=== PATIENT | female | born 1975 | race African-American/Black ===

== ENCOUNTER 2017-06-11 15:24 | Emergency (ER) | payer BC, OTHER ==
[~2017-06-11] VITALS: Ht 177.8 cm; Wt 113.4 kg
[~2017-06-11 15:24] MED LIST: BACTRIM DS TAB1 EACH PO; BCP; IBUPROFEN 600600 M1 PO; NECON1 EAC1 PO; NOHOMEMEDICATIONS; NORCO 5-325 TA1 EACH PO
[2017-06-11] MEDS ORDERED: CYCLOBENZAPRINE5 MG PO (16:55)
[2017-06-11] MEDS ORDERED: NORCO 10-325 T1 EACH PO (16:55)
[2017-06-11 17:29] VITALS: BP 189/84
== END 2017-06-11 17:32 | disposition home or self-care (01) ==
LOC: ER 15:24
DX: S16.1XXA Strain of muscle, fascia and tendon at neck level, initial encounter (principal); S39.012A Strain of muscle, fascia and tendon of lower back, initial encounter; V89.2XXA Person injured in unspecified motor-vehicle accident, traffic, initial encounter; Y93.89 Activity, other specified; Y92.89 Other specified places as the place of occurrence of the external cause; Y99.8 Other external cause status

== ENCOUNTER 2021-04-30 01:01 | Emergency (ER) | payer OTHER ==
[~2021-04-30] VITALS: Ht 175.3 cm; Wt 120.2 kg
[~2021-04-30 01:01] MED LIST changes: +CYCLOBENZAPRINE5 MG PO; +NORCO 10-325 T1 EACH PO
[2021-04-30] MEDS ORDERED: METFORMIN HCL500 M3 PO (01:07)
[2021-04-30] MEDS ORDERED: NORCO7.5 PO (02:20)
[2021-04-30] MEDS ORDERED: BACTRIM DS TAB1 EACH PO (02:20)
[2021-04-30 02:30] VITALS: BP 134/92
== END 2021-04-30 02:38 | disposition home or self-care (01) ==
LOC: ER 01:01
DX: N61.1 Abscess of the breast and nipple (principal); N76.4 Abscess of vulva; F17.210 Nicotine dependence, cigarettes, uncomplicated; Z98.890 Other specified postprocedural states; Z79.899 Other long term (current) drug therapy